=== PATIENT | male | born 1970 | race African-American/Black ===

== ENCOUNTER 2018-12-28 09:01 | Day surgery (SDC) | payer OTHER ==
[~2018-12-28] VITALS: Ht 188 cm; Wt 154.2 kg
[2018-12-28] VITALS (7 sets, daily range): BP systolic 143–149; BP diastolic 82–94
--- NOTE | 2018-12-28 07:14 | Anethesia Preoperative Eval ---
Anesthesia Pre-op PMH/ROS General Date of Evaluation: Dec 28, 2018 Time of Evaluation: 07:13 Anesthesiologist: angie ASA Score: ASA 3 Mallampati Score Class I : Soft palate, uvula, fauces, pillars visible Class II: Soft palate, uvula, fauces visible Class III: Soft palate, base of uvula visible Class IV: Only hard plate visible Mallampati Classification: Class II Surgeon: chanell Diagnosis: gerd Surgical Procedure: egd Anesthesia History: none Social History: smoking - nonsmoker Family History: no anesthesia problems Allergies: Coded Allergies: No Known Allergies (Unverified , 12/27/18) Medications: see eMAR Patient NPO?: Yes Past Medical History Cardiovascular: Reports: HTN Gastrointestinal/Genitourinary: Reports: GERD Neurologic/Psychiatric: Reports: depression/anxiety Endocrine: Reports: DM Musculoskeletal/Integumentary: Reports: other - sciatica PSxH Narrative: left knee sx Anesthesia Pre-op Phys. Exam Physician Exam Constitutional: NAD Neurologic: CN 2-12 intact Cardiovascular: RRR Respiratory: CTA Gastrointestinal: S/NT/ND Airway Exam Mallampati Score: Class II MO: limited Neck: short TMD: 2fb ROM: limited Anesthesia Pre-op A/P Risk Assessment & Plan Assessment: asa3 Plan: mac Status Change Before Surgery: No Pre-Antibiotics Drug: Ariadna Velasquez MD Dec 28, 2018 07:14
[~2018-12-28 09:01] MED LIST: Atropine Inj 1mg/10ml Syr IV PRN; DiphenhydrAMINE 50mg/ml Inj IVP PRN; LR 1000ml 1,000 ML IVLG SCH; Midazolam 2mg/2ml Inj IVP PRN; fentaNYL 100 mcg/2 mL IV PRN
[2018-12-28] MEDS ORDERED: ASPIRIN81 MG ORAL (09:39)
[2018-12-28] MEDS ORDERED: GLIPIZIDE XL10 M1 ORAL (09:39)
--- NOTE | 2018-12-28 09:57 | Short Stay Surgery H&P ---
History of Present Illness History of Present Illness Chief Complaint Abdominal pains/GERDs HPI Jack Wills is a 48 year old male who was admitted on for GERDS/ abdominal pains Patient History Allergies: Coded Allergies: No Known Allergies (Unverified , 12/27/18) PAST MEDICAL HISTORY: (1) History of surgery on arm (2) S/P discectomy (3) Hypertension (4) Hyperlipidemia (5) Diabetes Medication History Scheduled Aspirin* (Aspirin*), 81 MG ORAL DAILY, (Reported) Glipizide (Glipizide Xl), 10 MG ORAL BID, (Reported) Review of Systems Cardiovascular: Reports: no symptoms Respiratory: Reports: no symptoms Skeletal: Reports: trauma Gastrointestinal: Reports: gastro esophageal reflux disease Genitourinary: Reports: BPH Endocrine: Reports: diabetes - type 2 Physical Exam Vital Signs Last Vital Signs Date Time Temp Pulse Resp B/P (MAP) Pulse Ox O2 Delivery O2 Flow Rate FiO2 12/28/18 09:40 Room Air 12/28/18 09:36 98.6 65 18 144/87 98 Skin: normal HENT: normal Heart: normal Lungs: normal Abdomen: abnormal Extremities: normal Genitourinary: normal Plan Plan of Care Upper GI endoscopy and biopsy Preop Interventions None. Summary of Findings See the reports Attestation Are the patient's medical conditions optimized for surgery? Attestation Response: yes Rasheed Pittman MD Dec 28, 2018 09:57
--- NOTE | 2018-12-28 09:58 | Pre-Procedure Note/Attestation ---
Pre-Procedure Note/Attestation Complete Prior to Procedure Planned Procedure: left Procedure Narrative: Examination of the upper GI tract via endoscopy. Indications for Procedure Pre-Operative Diagnosis: R/O Gastritis/peptic ulcer Attestation I attest that I discussed the nature of the procedure; its benefits; risks and complications; and alternatives (and the risks and benefits of such alternatives ), prior to the procedure, with the patient (or the patient's legal education courses sales representative). I attest that, if there was a reasonable possibility of needing a blood transfusion, the patient (or the patient's legal education courses sales representative) was given the [facility] standardized written summary, pursuant to the [place] Blood Safety Act ([place] Health and Safety Code # 1645, as amended). I attest that I re-evaluated the patient just prior to the surgery and that there has been no change in the patient's H&P, except as documented below: Rasheed Pittman MD Dec 28, 2018 09:58
[2018-12-28] MEDS ORDERED: LR 1000ml ONE (10:00)
[2018-12-28] MEDS ORDERED: Lidocaine 1% MPF 10mg/ml 5ml ONE (10:00)
[2018-12-28] MEDS ORDERED: Propofol 200mg/20ml IV ONE (10:00)
--- NOTE | 2018-12-28 10:14 | Discharge Instructions ---
Discharge Instructions Discharge Instructions Follow up with: visit the doctor after 2 weeks in the office For Congestive Heart Failure Reminder Report to your physician any weight gain of 5 pounds or more in one week. Rasheed Pittman MD Dec 28, 2018 10:14
--- NOTE | 2018-12-28 10:14 | Endoscopy Procedure Note ---
Endoscopy Procedure Note General Indication for Procedure: Abdominal pains/GERDs/dysphagia Procedures Performed: EGD - Small Hiatal Hernia with small size Brown's that was biopsied. Normal Gastroscopy. Biopsy was also done per random froma gastric body Specimen: yes Pt Tolerated Procedure Well: Yes Estimated Blood Loss: none Anesthesia Anesthesiologist: Dr. Mcmullen Anesthesia: moderate sedation Medications Medication Given: see anesthesia record Inserted Devices Implant(s) used?: No Quality Quality of Bowel Preparation: Excellent GI Core Measures 50 yrs or older w/o bx or poly: Not Applicable 10yrs. F/U not recommended: Not Applicable If not recommended, why?: Med reason:<3 yrs.: System Reason:<3 yrs.: Rasheed Pittman MD Dec 28, 2018 10:13
--- NOTE | 2018-12-28 13:05 | Immediate Post-Op Evaluation ---
Immediate Post-Op Evalulation Immediate Post-Op Evalulation Procedure: egd/bx Date of Evaluation: Dec 28, 2018 Time of Evaluation: 10:39 IV Fluids: 200ml lr Blood Products: none Estimated Blood Loss: negligible Blood Pressure Systolic: 148 Blood Pressure Diastolic: 94 Pulse Rate: 92 Respiratory Rate: 18 O2 Sat by Pulse Oximetry: 100 Temperature (Fahrenheit): 98.1 Pain Score (1-10): 0 Nausea: No Vomiting: No Complications none Patient Status: awake, reacts, patent Hydration Status: adequate Drug: Ariadna Velasquez MD Dec 28, 2018 13:05
--- NOTE | 2018-12-28 13:06 | 48 Hour Post Anesthesia Eval ---
Post Anesthesia Evaluation Procedure: egd/bx Date of Evaluation: Dec 28, 2018 Time of Evaluation: 10:41 Blood Pressure Systolic: 149 0: 89 Pulse Rate: 92 Respiratory Rate: 18 Temperature (Fahrenheit): 98.1 O2 Sat by Pulse Oximetry: 100 Airway: patent Nausea: No Vomiting: No Pain Intensity: 0 Hydration Status: adequate Cardiopulmonary Status: stable Mental Status/LOC: patient returned to baseline Post-Anesthesia Complications: none Follow-up care needed: N/A Ariadna Mcmullen MD Dec 28, 2018 13:06
--- NOTE | 2018-12-28 16:15 | Pre-op HX & Phy Repo 2 SIG ---
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 The patient was seen by me approximately three weeks ago in the office complaining of multiple problems with mostly the abdominal pain and symptoms of chronic gastroesophageal acid reflux that he has been suffering for a long period of time. He reported that he does have a significant heartburn for which he has been prescribed multiple medications including PPI such as Prilosec and similar compound and antiacids as well. 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 As such, he has received surgeries for his arm as well as especially in the lower back, which was considered to be consistent with disk disease. Subsequent to his work injury, the patient was started on nonsteroidal anti-inflammatory agents such as the ibuprofen, Motrin etc that he started to have symptoms of the gastric problem mostly presenting with gastroesophageal reflux. He also reported that he received epidural injections for the problem of disk as well. But as I mentioned, he has been receiving significant amount of nonsteroidal anti-inflammatory agents such as naproxen from year of [address] to 2013. Also has a gained significant amount of weight. The patient denies having any hematemesis, melena, or hematochezia at this time, but he does have difficulty swallowing consistent with dysphagia. He also reports to me that he was receiving medications such as Dexilant, which was quite helpful to control his symptoms as well. He denies any constipation or diarrhea at this time. No chest pain. PAST MEDICAL HISTORY: Basically significant for fatty liver and diabetes mellitus for which he is receiving medications. Also has had history of diagnosed diverticulosis, benign prostatic hypertrophy, and morbid obesity. SURGICAL HISTORY: He has had surgery over his left arm and lower back as mentioned. ALLERGIES: Not significant. CHILDHOOD DISEASES: As usual. HABITS: He does not drink alcohol and does not smoke cigarettes as well. MEDICATIONS: Current medications, he is taking Dexilant 60 mg on daily basis and glipizide 20 mg twice a day for the control of his diabetes mellitus. FAMILY HISTORY: Not significant. REVIEW OF SYSTEMS: Basically history of present illness. He denies chest pain, shortness of breath, headaches. No history of urinary symptoms at this time such as dysuria, pyuria, hematuria. PHYSICAL EXAMINATION: GENERAL: At this time, alert and well oriented gentleman, does not seem to be in any acute distress. He is significantly obese consistent with morbid obesity. VITAL SIGNS: Blood pressure 144/87, pulse rate 65 per minute, oxygen saturation 98%, respiratory rate 18 per minute. HEENT: Normocephalic. Pupils equal in size and reactive to light and accommodation. No visible jaundice. Buccal cavity, tongue midline, well hydrated. No ulcers. NECK: Supple. No JVD, thyromegaly, or adenopathy. CHEST: Clear to auscultation and percussion. No rales or rhonchi. HEART: S1, S2 normal. Regular rhythm. No gallops or murmur. ABDOMEN: Soft but mildly tender mostly over the upper part of the abdomen, but is significantly obese. No palpable mass noted at this time. EXTREMITIES: Unremarkable. CENTRAL NERVOUS SYSTEM: Not significant. INITIAL PREOPERATIVE IMPRESSION: 1. Epigastric pain of uncertain etiology, rule out chronic gastroesophageal acid reflux producing esophagitis, gastritis, peptic ulcer disease, rule out Brown's mucosa secondary to chronic gastroesophageal reflux. 2. Dysphagia possibly secondary to NSAID-induced esophagitis versus esophageal spasm secondary to gastroesophageal reflux disease. 3. Morbid obesity, diabetes mellitus, hypertension, hyperlipidemia, and fatty liver. RECOMMENDATIONS: The applicant seems to be stable at this time to undergo the procedure of upper GI endoscopy for which he has been scheduled. He understands the risks and benefits and will sign the consent. Said Elissa Pittman DR: Liam JOB#: [id number] CC:
--- NOTE | 2018-12-28 16:45 | Operative Note - Dictated ---
DATE OF OPERATION: 12/28/2018 SURGEON: Rasheed Pittman M.D. PROCEDURE: Esophagogastroduodenoscopy with biopsy. PREOPERATIVE DIAGNOSES: 1. Abdominal pain. 2. Chest pain. 3. Dysphagia. 4. Rule out peptic ulcer disease. POSTOPERATIVE DIAGNOSES: 1. Small hiatal hernia. 2. Evidence of a small Brown mucosa biopsy. Otherwise normal upper GI endoscopy. Biopsy was taken per random from gastric body as well. MEDICATION USED: Per Dr. Steele, anesthesiologist. INSTRUMENT: GIF Olympus upper GI video endoscope. DESCRIPTION OF PROCEDURE: The patient, after arriving endoscopy unit, was told about risks and benefits of the procedure, which he accepted and signed informed consent. He was then put on the left lateral decubitus position. After adequate IV sedation, the scope was gently passed through the cricopharyngeal area, was lodged into the upper esophagus and gradually advanced towards gastroesophageal junction. The entire length of the esophagus was normal, however, upon reaching towards the GE junction, one could see evidence of a small hiatal hernia, and there was also multiple small-sized Brown mucosa at the GE junction, which was biopsied. At this time, the scope was passed into the stomach, gastric cavity was distended. Gastric fold came into view, which revealed basically normal finding consistent with normal gastric mucosa. However, one random biopsy from gastric body obtained and subsequently the scope was passed through the antrum, pylorus, first and second portion of duodenum were found to be completely normal. At this time, the scope was pulled back into the stomach. A retroflexion maneuver was applied and there was no any particular abnormalities found at the GE junction except what is stated earlier, which was consistent with small Brown mucosa. At this time, the scope was pulled out and procedure was terminated. The patient tolerated the procedure well and left the endoscopy room in a good condition. Rasheed Pittman M.D. DR: ELIZABETH JOB#: [id number] CC:
== END 2018-12-28 11:40 | disposition home or self-care (01) ==
LOC: GAS 09:01
DX: R10.9 Unspecified abdominal pain (principal); R07.9 Chest pain, unspecified; R13.10 Dysphagia, unspecified; K44.9 Diaphragmatic hernia without obstruction or gangrene; K76.0 Fatty (change of) liver, not elsewhere classified; E11.9 Type 2 diabetes mellitus without complications; K57.90 Diverticulosis of intestine, part unspecified, without perforation or abscess without bleeding; Z79.899 Other long term (current) drug therapy; E66.01 Morbid (severe) obesity due to excess calories; I10 Essential (primary) hypertension; E78.5 Hyperlipidemia, unspecified; K21.9 Gastro-esophageal reflux disease without esophagitis; F32.9 Major depressive disorder, single episode, unspecified; F41.9 Anxiety disorder, unspecified
CPT/HCPCS: 43239; 82962; J2704; 94003; 94150